=== PATIENT | male | born 1990 | race African-American/Black ===

== ENCOUNTER → 2016-06-25 | Outpatient (CLI) | payer BC ==
[2014-02-26 06:41] VITALS: BP 145/77
--- NOTE | 2016-06-25 16:00 | CARD ---
APPROVED REPORT EXAM: Two-dimensional and M-mode echocardiogram with Doppler and color Doppler. Other Information Quality : Fair INDICATION VSD History of VSD Repair Surgery/Intervention Morbid Obesity 2D DIMENSIONS RVDd2.5 (2.9-3.5cm)Left Atrium(2D)4.3 (1.6-4.0cm) IVSd1.2 (0.7-1.1cm)Aortic Root(2D)3.0 (2.0-3.7cm) LVDd5.2 (3.9-5.9cm)LVOT Diameter2.3 (1.8-2.4cm) PWd1.3 (0.7-1.1cm)LVDs3.3 (2.5-4.0cm) FS (%) 36.7 %SV83.9 ml LVEF(%)66.2 (>50%) Aortic Valve AoV Peak Devin.148.0cm/sAoV VTI30.7cm AO Peak GR.8.8mmHgLVOT Peak Devin.121.8cm/s AO Mean GR.5mmHgAVA (VMAX)3.31cm2 CHRIS (VTI)3.10cm2 Mitral Valve MV E Qyeaeqno503.8cm/sMV DECEL [id number] MV A Lkqyudxr06.3cm/sE/A Ratio4.7 Pulmonary Valve PV Peak Nigjwbry903.7cm/s Tricuspid Valve TR P. Anwywtch196ex/sRAP PQPXHZOB2rlJp TR Peak Gr.83xoHwZFYZ32nxXo Pulmonary Vein S1 Pvixslns45.7cm/sD2 Cfjsrhks58.7cm/s LEFT VENTRICLE The left ventricle is normal size. There is mild concentric left ventricular hypertrophy. The left ve ntricular systolic function is normal. The Ejection Fraction is 55%. There is normal LV segmental wal l motion. Transmitral Doppler flow pattern is normal for age. 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 RIGHT VENTRICLE The right ventricle is normal size. The right ventricular systolic function is normal. ATRIA The left atrium is mildly dilated. The right atrium is mildly dilated. The interatrial septum is inta ct with no evidence for an atrial septal defect or patent foramen ovale as noted on 2-D or Doppler im aging. AORTIC VALVE The aortic valve is not well visualized but appears to be functioning normally by Doppler interrogati on. Doppler and Color Flow revealed no significant aortic regurgitation. There is no significant aort ic valvular stenosis. MITRAL VALVE The mitral valve is normal in structure and function. There is no evidence of mitral valve prolapse. There is no mitral valve stenosis. Doppler and Color-flow revealed trace mitral regurgitation. TRICUSPID VALVE The tricuspid valve is normal in structure and function. Doppler and Color Flow revealed trace tricus pid regurgitation. There is mild pulmonary hypertension. The PA pressure was estimated at 32 mmHg. Th ere is no tricuspid valve stenosis. PULMONIC VALVE The pulmonic valve is not well visualized. Doppler and Color Flow revealed no pulmonic valvular regur gitation. There is increased flow through the pulmonic valve. GREAT VESSELS The aortic root is normal in size. The ascending aorta is not well seen. The IVC was not visualized. PERICARDIAL EFFUSION There is no evidence of significant pericardial effusion. Critical Notification Critical Value: No <Conclusion> The left ventricular systolic function is normal. The Ejection Fraction is 55%. There is normal LV segmental wall motion. The left atrium is mildly dilated. Trace mitral regurgitation. Trace tricuspid regurgitation. The PA pressure was estimated at 32 mmHg. There is no evidence of significant pericardial effusion.
== END | disposition home or self-care (01) ==
LOC: ECHO 14:03
PROVIDERS: ATTEND Internal Medicine Cardiovascular Disease
DX: Q21.0 Ventricular septal defect (principal); I51.7 Cardiomegaly; I34.0 Nonrheumatic mitral (valve) insufficiency; I27.2 Other secondary pulmonary hypertension
CPT/HCPCS: 93306